=== PATIENT | female | born 1960 | race African-American/Black ===

== ENCOUNTER 2021-04-26 06:31 | Emergency (ER) | payer MEDICAID, OTHER ==
[~2021-04-26] VITALS: Ht 165.1 cm; Wt 73.0 kg
[~2021-04-26 06:31] MED LIST: AMLO5TAB88 PO; FERR325T23 PO; HYDR12.529 PO; MOM PO; PANT40TA51 PO
[2021-04-26] MEDS ORDERED: ACETAMINOPHEN 325MG TABLET PO ONE (07:15)
[2021-04-26] MEDS ORDERED: METOCLOPRAMIDE HCL 10MG/2ML VIAL IV ONE (07:15)
[2021-04-26] MEDS ORDERED: MECLIZINE 25MG TABLET PO ONE (07:15)
[2021-04-26] MEDS ORDERED: SODIUM CHLORIDE 0.9% 1,000 ML IV ONE (07:15)
[2021-04-26] MEDS ORDERED: LORAZEPAM 2MG/ML CPJ IV ONE (07:15)
[2021-04-26 07:56] LABS: BASOPHILS % 0.6 % (0.0-2.0); EOSINOPHILS % 0.6 % (0.0-5.0); HEMOGLOBIN. 14.2 g/dL (12.0-16.0); LYMPHOCYTES % 15.3 % (20.0-50.0); MEAN CORPUSCULAR HEMOGLOBIN 30.6 pg (28.0-32.0); MEAN CORPUSCULAR VOLUME 88.4 fL (81.0-99.0); MEAN PLATELET VOLUME 9.4 fl (7.4-10.4); MONOCYTES % 6.5 % (2.0-8.0); PLATELET 210 x1000/uL (130-400); RED BLOOD CELL COUNT 4.64 mill/uL (4.2-5.4); RED CELL DISTRIBUTION WIDTH 13.6 % (11.6-14.6)
[2021-04-26 08:05] LABS: CHLORIDE 108 mEq/L (98-107)
[2021-04-26] MEDS ORDERED: IOHEXOL-350 100 ML BOTTLE ONE (09:44)
[2021-04-26] MEDS ORDERED: SODIUM CHLORIDE 0.9% 1,000 ML IV SCH (12:30)
[2021-04-26] MEDS ORDERED: ONDANSETRON HCL 4MG/2ML INJ IV PRN (12:30)
[2021-04-26] MEDS ORDERED: DIPHENHYDRAMINE 50MG/ML VIAL IV PRN (12:30)
[2021-04-26] MEDS ORDERED: CLONIDINE 0.1MG TABLET PO PRN (12:30)
[2021-04-26] MEDS ORDERED: ACETAMINOPHEN 325MG TABLET PO PRN (12:30)
[2021-04-26] MEDS ORDERED: LORAZEPAM 2MG/ML CPJ IV NR (13:00)
[2021-04-26 13:41] VITALS: BP 124/64
== END 2021-04-26 14:35 | disposition short-term general hospital (02) ==
LOC: ER 06:31 → ENRESERV 13:27 → CANRESERV 13:27 → ER 14:35 → CANBEDREQ 15:34
DX: Q28.2 Arteriovenous malformation of cerebral vessels (principal); I10 Essential (primary) hypertension; E78.5 Hyperlipidemia, unspecified; F12.90 Cannabis use, unspecified, uncomplicated; Z96.652 Presence of left artificial knee joint; Z79.899 Other long term (current) drug therapy
CPT/HCPCS: 36415; 70496; 70498; 71045; 80053; 81025; 83880; 84484; 85025; 93005; 93970; 96361; 96374; 96375; 99285; J2060; J2765; J7030; J8597; Q9967